=== PATIENT | male | born 1945 | race Caucasian/White ===

== ENCOUNTER 2019-12-20 00:07 | Inpatient (IN) | payer OTHER, SELFPAY ==
[2019-12-20] VITALS (108 sets, daily range): BP systolic 94–178; BP diastolic 62–114; PULSE 52–121; RESP 14–24; TEMP 36.8–37; O2SAT 92–97; BMI 25.2
--- NOTE | 2019-12-20 00:12 | ED_ITS ---
Entered by Natalia Perkins, acting as scribe for Cassandra Avila HPI - General Adult General: Chief complaint: Chest Pain Stated complaint: HEART RATE Time Seen by Provider: 12/20/19 00:12 Source: patient and family Mode of arrival: ambulatory Limitations: no limitations History of Present Illness: HPI narrative: Constantine is a nice 74-year-old male who comes in complaining of rapid palpitations and chest discomfort. The patient states this is what it feels like when he has atrial fibrillation. He had a cardioversion 1 month ago and is scheduled for an outpatient cardiac ablation but it does not occur for another month. The patient states when his heart rate gets up above 140 he really has discomfort. He denies any syncope or near syncope. He says he is feeling a little better here at the hospital upon arrival but still has some discomfort. He denies any exacerbating or alleviating factors. MD complaint: Palpitations, elevated blood pressure Onset (ago): hour(s) (2200 tonight) Location: chest Radiation: neck Severity: mild Pain Consistency: constant Relieving factors: none Exacerbating factors: none Associated symptoms: Reports chest pain and palpitations; Deny confusion, diaphoresis, dyspnea, headache(s), malaise, nausea, rash or vomiting Treatments prior to arrival: none Review of Systems General: Reports: other (negative unless marked) Const: Denies: fever, chills, body aches, fatigue, malaise or diaphoresis Eyes: Denies: change in vision or blurry vision ENMT: Denies: throat pain, painful swallowing, hoarseness, ear pain, ear discharge, Change in hearing or nasal discharge Card: Reports: chest pain and palpitations Resp: Denies: shortness of breath, productive cough, non-productive cough, wheezing, coughing up blood or chest congestion GI: Denies: abdominal pain, nausea, vomiting, vomiting blood, coffee grounds in vomit, diarrhea, constipation, cramping, blood in stool or black tarry stool : Denies: flank pain, difficulty urinating, painful urination, urinary frequency, urinary urgency, decreased urine ouput, urinary incontinence or blood in urine Musc: Denies: neck pain, back pain, extremity pain, extremity swelling, joint pain, joint swelling, joint warmth or joint stiffness Skin/Breast: Denies: rash, skin tenderness or yellow skin Neuro: Denies: headache, numbness in extremities, weakness in extremities, changes in sensation, lack of coordination, difficulty walking, dizziness, vertigo or confusion Endo: Denies: excessive thirst, tired all the time, cold intolerance, excessiv e sweating, flushing or hot flashes Tacos/Lymph: Denies: easy bruising, easy bleeding, petechiae or enlarged lymph nodes All/Imm: Denies: hives, throat swelling, tongue swelling, facial swelling or acute wheezing PFSH ED PFSH: Statuses (acute, chronic, etc) shown below reflect problem list status as previously entered and may not be historically accurate Medical History (Updated 12/20/19 @ 02:53 by Cassandra Avila) Atrial fibrillation (Acute) GERD (gastroesophageal reflux disease) (Acute) Hypertension (Acute) Surgical History (Updated 12/20/19 @ 02:12 by Melissa Garcia MD) H/O vasectomy (Acute) Family History (Updated 12/20/19 @ 02:13 by Melissa Garcia MD) Denies family history of CAD (coronary artery disease) Chronic kidney disease (CKD) Cancer Social History (Updated 12/20/19 @ 02:13 by Melissa Garcia MD) Smoking and tobacco status: never smoked Alcohol intake: never Substance/Drug Use: never Household members: family Housing: House Physical Exam Const: COMMON NORMALS: no apparent distress, oriented x3, no limitations, healthy appearing and well nourished EXAM LIMITATIONS: no altered mental status GENERAL APPEARANCE: cooperative, well kempt and well developed ORIENTATION/CONSCIOUSNESS: Yes awake HENMT: COMMON NORMALS: normocephalic, head/scalp atraumatic, hearing grossly normal bilaterally, external ears normal, EAC's normal, external nose normal and moist oral mucous membranes HEAD & SCALP: normal to inspection, normocephalic and atraumatic FACE & SINUS: normal facial exam and face symmetric NOSE: external nose normal and nares normal EXTERNAL EAR: Yes external ears normal EXTERNAL AUDITORY CANAL: EAC's normal MOUTH: oral and palatal mucosa normal and tongue normal Eye: COMMON NORMALS: PERRL, EOMs intact bilaterally, conjunctivae normal and no scleral icterus GENERAL EYE: normal appearance of both eyes and normal light reflex CONJUNCTIVA: Yes conjunctivae normal SCLERA: sclerae normal CORNEA: Yes corneas normal PUPIL: Yes PERRL DIRECT OPHTHALMOSCOPY: Yes normal light reflex Neck/C-Spine: COMMON NORMALS: full ROM, no lymphadenopathy, supple, no meningeal signs and no JVD GENERAL: Yes normal visual inspection and Yes trachea midline CERVICAL SPINE: Yes cervical ROM normal Chest: COMMONS NORMALS: inspection of chest normal and palpation of chest normal Resp: COMMON NORMALS: normal respiratory effort, no retractions, no use of accessory muscles and clear to auscultation bilaterally EFFORT & INSPECTION: Yes able to speak in complete sentences AUSCULTATION: clear to auscultation bilaterally Cardio: COMMON NORMALS: no JVD, regular rate, regular rhythm, S1 normal heart sound, S2 normal heart sound, no gallops, no clicks, no murmurs and no rub JUGULAR VENOUS DISTENTION: no JVD RATE: regular rate RHYTHM: regular rhythm HEART SOUNDS: S1 normal and S2 normal GI: COMMON NORMALS: soft to palpation, non-tender, no hepatosplenomegaly and no masses INSPECTION: Yes normal to inspection PALPATION: Yes soft and Yes no hepatosplenomegaly : COMMON NORMALS: Yes no CVA tenderness BLADDER/KIDNEY EXAM: Yes no CVA tenderness Back/Pelvis: COMMON NORMALS: no CVA tenderness, thoracic and lumbar spine normal to inspection, no thoracic nor lumbar tenderness and thoraco-lumbar ROM normal Extremity: COMMON NORMALS: normal to inspection, full ROM, normal capillary refill, no joint enlargement, no clubbing, cyanosis or edema and no calf tenderness Neuro: COMMON NORMALS: oriented x3, CN's II-XII intact bilaterally, moves all extremities, no focal motor deficits and no sensory deficits noted MENINGEAL SIGNS: Yes no meningeal signs Psych: COMMON NORMALS: mental status grossly normal, thought process normal, cooperative, affect normal, speech normal and activity/motor behavior normal APPEARANCE: Yes well kempt SPEECH: Yes normal speech THOUGHT PROCESS: normal thought process Skin: COMMON NORMALS: no rashes or lesions noted, skin turgor normal, no jaundice, no petechiae and no mottling GENERAL SKIN EXAM: no rashes or lesions noted and turgor normal Course Vital Signs: Vital signs: Vital Signs Temperature 98.2 F 12/20/19 00:11 Pulse Rate 97 12/20/19 02:00 Respiratory Rate 14 12/20/19 02:35 Blood Pressure 145/92 12/20/19 02:00 Pulse Oximetry 95 12/20/19 02:35 MDM - General Adult MDM Narrative: Medical decision making narrative: Constantine is a 74-year-old male who comes in with chest discomfort and rapid palpitations. His initial EKG showed a sinus rhythm with a PVC. He was doing better and I thought he would get to go home but then he had another episode of paroxysmal A. fib. His rate slowed down with Cardizem bolus and drip but was still slightly tachycardic. He very well may be cardioverted tomorrow but I think this would be best done in a more controlled setting with cardiology present. The patient is requesting Dr. Crowell be available as he has his personal friend and his textile colorist formulator here. Studies have shown that most of these cases resolve within the first 24 hours without need of cardioversion. I reviewed the case in full with Dr. Garcia who is agreeable to admission. Dr. Garcia is going to try and get Dr. Crowell available tomorrow as well. Further care will be dictated by him. Lab Data: Attestation: I reviewed the patient's lab results. Labs: Lab Results 12/20/19 12/20/19 12/20/19 Range/Units 00:30 00:30 00:30 WBC 9.4 (4.0-10.0) 10^3/ uL RBC 5.00 (4.1-5.3) 10^6/u L Hgb 14.9 (11.7-16.6) g/dL Hct 45.0 (42.0-52.0) % MCV 90.0 (80-94) fL MCH 29.8 (28.0-34.0) pg MCHC 33.1 (30.0-36.0) g/dL RDW 13.3 (12.1-15.1) % Plt Count 234 (130-400) 10^3/c mm MPV 11.9 H (7.4-10.4) fL Neut % (Auto) 44.1 % Lymph % (Auto) 36.4 % [place] % (Auto) 12.5 % Eos % (Auto) 5.8 % Baso % (Auto) 0.8 % Neut # (Auto) 4.2 (1.8-7.7) 10^3/u L Lymph # (Auto) 3.4 (0.8-4.8) 10^3/u L [place] # (Auto) 1.2 H (0.2-0.9) 10^3/u L Eos # (Auto) 0.6 (0.0-0.8) 10^3/u L Baso # (Auto) 0.1 (0.0-0.1) 10^3/u L Nucleated RBC % (a uto) 0 % Nucleated RBCs # 0.0 /100WBC Sodium 136 (136-145) mmol/L Potassium 3.7 (3.5-5.1) mmol/L Chloride 99 (98-107) mmol/L Carbon Dioxide 28 (22-29) mmol/L Anion Gap 12.7 (5-19) BUN 24 H (8-23) mg/dL Creatinine 1.2 (0.7-1.2) mg/dL Glucose 148 H (74-106) mg/dL Calcium 9.7 (8.5-10.5) mg/dL Magnesium (1.7-2.3) mg/dL Total Bilirubin 0.2 (0.15-1.2) mg/dL AST 19 (0-40) U/L ALT 14 (0-41) U/L Alkaline Phosphata se 75 (40-130) IU/L Troponin T Baselin e 15 (0-15) ng/mL Total Protein 7.7 (6.6-8.7) g/dL Albumin 4.4 (3.5-5.2) g/dL Globulin 3.3 (1.3-4.6) g/dL Urine Color (Yellow) Urine Appearance (CLEAR) Urine pH (5-7) Ur Specific Gravit y (1.005-1.030) Urine Protein (Negative) Urine Glucose (UA) (Normal) Urine Ketones (Negative) Urine Occult Blood (Negative) Urine Nitrate (Negative) Urine Bilirubin (NEGATIVE) Urine Urobilinogen (Negative) mg/dL Ur Leukocyte Jeana ase (Negative) 12/20/19 12/20/19 Range/Units 00:30 01:43 WBC (4.0-10.0) 10^3/ uL RBC (4.1-5.3) 10^6/u L Hgb (11.7-16.6) g/dL Hct (42.0-52.0) % MCV (80-94) fL MCH (28.0-34.0) pg MCHC (30.0-36.0) g/dL RDW (12.1-15.1) % Plt Count (130-400) 10^3/c mm MPV (7.4-10.4) fL Neut % (Auto) % Lymph % (Auto) % [place] % (Auto) % Eos % (Auto) % Baso % (Auto) % Neut # (Auto) (1.8-7.7) 10^3/u L Lymph # (Auto) (0.8-4.8) 10^3/u L [place] # (Auto) (0.2-0.9) 10^3/u L Eos # (Auto) (0.0-0.8) 10^3/u L Baso # (Auto) (0.0-0.1) 10^3/u L Nucleated RBC % (a uto) % Nucleated RBCs # /100WBC Sodium (136-145) mmol/L Potassium (3.5-5.1) mmol/L Chloride (98-107) mmol/L Carbon Dioxide (22-29) mmol/L Anion Gap (5-19) BUN (8-23) mg/dL Creatinine (0.7-1.2) mg/dL Glucose (74-106) mg/dL Calcium (8.5-10.5) mg/dL Magnesium 2.4 H (1.7-2.3) mg/dL Total Bilirubin (0.15-1.2) mg/dL AST (0-40) U/L ALT (0-41) U/L Alkaline Phosphata se (40-130) IU/L Troponin T Baselin e (0-15) ng/mL Total Protein (6.6-8.7) g/dL Albumin (3.5-5.2) g/dL Globulin (1.3-4.6) g/dL Urine Color Yellow (Yellow) Urine Appearance Clear (CLEAR) Urine pH 5 (5-7) Ur Specific Gravit y 1.025 (1.005-1.030) Urine Protein Neg (Negative) Urine Glucose (UA) Norm (Normal) Urine Ketones Negative (Negative) Urine Occult Blood Neg (Negative) Urine Nitrate Negative (Negative) Urine Bilirubin Neg (NEGATIVE) Urine Urobilinogen Norm (Negative) mg/dL Ur Leukocyte Jeana ase Negative (Negative) Imaging Data^: CXR: My impression: No acute cardiopulmonary disease. Small left pleural effusion. Pleural effusion is new since last chest x-ray. EKG Data^: EKG 1: Attestation: I personally reviewed and interpreted this EKG as follows: EKG interpretation date: 12/20/19 EKG interpretation time: 00:18 Interpretation: Normal sinus rhythm at 73 beats a minute, PACs, PVC, nonspecific ST-T wave changes. EKG 2: Attestation: I personally reviewed and interpreted this EKG as follows: EKG interpretation date: 12/20/19 EKG interpretation time: 01:40 Interpretation: Atrial fibrillation with a ventricular rate of 114 beats a minute, normal QRS, normal QTC, normal axis, nonspecific ST and T wave changes. Discharge Plan Discharge Patient Disposition: Admitted As Inpatient Admit Provider: Melissa Garcia Clinical Impression: Atrial fibrillation with RVR Condition: Stable Coding Level of Care Code ED Advertising Statistical Clerk for Chg Fwd Exam Problem Focused The documentation recorded by the Gregorio arauz Bridget Annette, accurately reflects the service I personally performed and the decisions made by Margarita pimentel Eli N Dec 20, 2019 00:07
--- NOTE | 2019-12-20 00:18 | XR_ITS ---
WS: [id number] CHEST XRAY TECHNIQUE: Portable chest. CLINICAL INFORMATION: CP/PALPS COMPARISON: December 24, 2016 FINDINGS: Heart: Cardiomegaly. Lungs: Chronic emphysematous changes. Small left pleural effusion. Slight infiltrate or atelectasis l eft lung base. Right lung is well aerated. Bones: Hypertrophic changes thoracic spine. XR/XR chest 1V portable [id number] IMPRESSION: 1. Small left pleural effusion with slight left basilar infiltrate or atelecta sis. 2. Right lung is well aerated.
--- NOTE | 2019-12-20 00:18 | ECG_ITS ---
Measurements Intervals [place] Rate: 73 P: 74 IA: 140 QRS: 30 QRSD: 87 T: 53 QT: 397 QTc: 440 SINUS RHYTHM WITH OCCASIONAL VENTRICULAR PREMATURE COMPLEXES WITH FREQUENT SUP SUPRAVENTRICULAR PREMATURE COMPLEXES ABNORMAL RHYTHM ECG Compared to ECG 06/23/2019 12:15:21 Ventricular premature complex(es) now present Sinus arrhythmia no longer present Electronically Signed On 12-20-2019 11:33:06 VENTILATION EQUIPMENT TENDER by Dimitris Badillo M.D. [id number] f
--- NOTE | 2019-12-20 00:19 | PC.NURSE ---
EKG done at 0017 and shown to ER doctor.
[2019-12-20] MEDS: sodium chloride 0.9% 1,000 ML 999 ML IV (00:21)
[2019-12-20] MEDS: aspirin 81 mg Chew Tablet 324 MG PO (00:33)
[2019-12-20 00:38] LABS: Basophils # 0.1 10^3/uL (0.0-0.1); Basophils % 0.8 %; Eosinophils # 0.6 10^3/uL (0.0-0.8); Eosinophils % 5.8 %; Hemoglobin 14.9 g/dL (11.7-16.6); Lymphocytes # 3.4 10^3/uL (0.8-4.8); Lymphocytes % 36.4 %; Mean Corpuscular HGB Conc 33.1 g/dL (30.0-36.0); Mean Corpuscular Hemoglobin 29.8 pg (28.0-34.0); Mean Platelet Volume 11.9 fL (7.4-10.4); Monocytes # 1.2 10^3/uL (0.2-0.9); Monocytes % 12.5 %; Neutrophils # 4.2 10^3/uL (1.8-7.7); Neutrophils % 44.1 %; Nucleated Red Blood Cells % 0 %; Platelet Count 234 10^3/cmm (130-400); Red Cell Distribution Width 13.3 % (12.1-15.1); White Blood Count 9.4 10^3/uL (4.0-10.0)
[2019-12-20 00:53] LABS: Alanine Aminotransferase 14 U/L (0-41); Albumin Level 4.4 g/dL (3.5-5.2); Alkaline Phosphatase 75 IU/L (40-130); Anion Gap 12.7 (5-19); Aspartate Amino Transferase 19 U/L (0-40); Blood Urea Nitrogen 24 mg/dL (8-23); Calcium 9.7 mg/dL (8.5-10.5); Carbon Dioxide 28 mmol/L (22-29); Chloride 99 mmol/L (98-107); Globulin 3.3 g/dL (1.3-4.6); Glucose 148 mg/dL (74-106); Potassium 3.7 mmol/L (3.5-5.1); Sodium 136 mmol/L (136-145); Total Bilirubin 0.2 mg/dL (0.15-1.2); Total Protein 7.7 g/dL (6.6-8.7)
[2019-12-20 00:55] LABS: Troponin(5th) Baseline 15 ng/mL (0-15)
--- NOTE | 2019-12-20 01:44 | PC.NURSE ---
Performed repeat EKG due to patient stating that he was hurting and felt short of breath, informed nurse and ER doctor. EKG was done at 0142 and shown to ER doctor.
[2019-12-20 01:48] LABS: Add Urine Microscopic? NO
[2019-12-20 01:59] LABS: Magnesium 2.4 mg/dL (1.7-2.3)
[2019-12-20 02:03] LABS: Bilirubin Urine Neg (NEGATIVE); Blood Urine Neg (Negative); Glucose Urine UA Norm (Normal); Ketones Urine Negative (Negative); Leukocyte Esterase Urine Negative (Negative); Nitrate Urine Negative (Negative); Protein Urine Neg (Negative); Specific Gravity, Urine 1.025 (1.005-1.030); Urine Appearance Clear (CLEAR); Urine Color Yellow (Yellow); Urobilinogen Urine Norm (Negative); pH Urine 5 (5-7)
--- NOTE | 2019-12-20 02:11 | PM.HP ---
Providers/Chief Complaint Chief Complaint: AFIB W/RVR History of Present Illness Constantine Walker is a 74 year old male who carries diagnosis of paroxysmal atrial fibrillation came in after experiencing palpitations. 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 He got diagnosed with atrial fibrillation about 5 years ago, was put on amiodarone, developed a rash to amiodarone which was discontinued later, did not experience any recurrence of A. fib in the last 5 years until 1 month ago he started having symptomatic palpitations when he was cardioverted in [place]. Patient is here in the hospital because he started experiencing palpitation as soon as he laid down in his bed to sleep it made him very uncomfortable he started feeling some pressure-like sensation in his throat and decided to come to ER. Patient is stating that he is very active and does not want to do withdrawal complications, he is denying active chest pain, shortness of breath, nausea vomiting dysuria numbness tingling extremity weakness. He denies previous history of [place], coronary disease or stroke. Diagnostics in ER showed normal hemodynamics, A. fib RVR heart rate fluctuating between 12 10- 30, he was started on Cardizem drip and was admitted to ICU overflow, I have started him on Eliquis, he received full dose therapeutic dose of Lovenox in ER Review of Systems Const: Denies: fever or chills Eyes: Denies: change in vision ENMT: Denies: throat pain Card: Reports: palpitations and irregular heart rhythm; Denies: chest pain, edema, swelling of feet/ankles or lightheadedness Resp: Denies: shortness of breath GI: Denies: abdominal pain or nausea : Denies: flank pain Musc: Denies: neck pain Skin/Breast: Denies: rash Neuro: Denies: headache Psych: Denies: anxiety Endo: Denies: excessive urination Tacos/Lymph: Denies: easy bruising All/Imm: Denies: hives Medications/Allergies Home Medications Medication Instructions Recorded Confirmed Last Taken Type losartan 100 mg PO DAILY 12/20/19 12/20/19 1 Day Ago History ~12/19/19 100 spironolactone [Aldactone] 25 mg 12/20/19 1 Day Ago History ~12/19/19 25 Allergies Allergy/AdvReac Type Severity Reaction Status Date / Time adhesive Allergy ALGY-Rash Verified 12/20/19 00:20 latex Allergy ALGY-Rash Verified 12/20/19 00:20 Penicillins Allergy Unknown Verified 12/20/19 00:20 Sulfa (Sulfonamide Allergy ADR/ALGY-Fl Verified 12/20/19 00:20 Antibiotics) ushing PFSH Acute PFSH: Statuses (acute, chronic, etc) shown below reflect problem list status as previously entered and may not be historically accurate Medical History (Updated 12/20/19 @ 02:53 by Cassandra Avila) Atrial fibrillation (Acute) GERD (gastroesophageal reflux disease) (Acute) Hypertension (Acute) Surgical History (Updated 12/20/19 @ 03:07 by Melissa Garcia MD) H/O carotid endarterectomy (Acute) H/O vasectomy (Acute) Family History (Updated 12/20/19 @ 02:13 by Melissa Garcia MD) Denies family history of CAD (coronary artery disease) Chronic kidney disease (CKD) Cancer Social History (Updated 12/20/19 @ 02:13 by Melissa Garcia MD) Smoking and tobacco status: never smoked Alcohol intake: never Substance/Drug Use: never Household members: family Housing: House Vitals/I&O/Wt Last Vital Signs Temp 98.2 F 12/20/19 00:11 Pulse 97 12/20/19 02:00 Resp 17 12/20/19 02:00 BP 145/92 12/20/19 02:00 Pulse Ox 94 12/20/19 02:00 Weight last 48 hrs Weight 79.832 kg Physical Exam Narrative: EXAM NARRATIVE: Very pleasant healthy looking elderly Nourished, well hydrated No active symptoms Variable S1-S2 no active signs of JVD heart failure or lower extremity edema Abdomen soft nontender nondistended Lungs are clear to auscultation No extremity weakness numbness or tingling EOMI, PERRLA Facial hyperemic rash which is chronic as per the patient Appropriate mood and affect Thyroid not enlarged Data : 12/20/19 00:30 12/20/19 00:30 A&P Assessment and plan (1) Atrial fibrillation with RVR: Status: Acute Code(s): I48.91 - Unspecified atrial fibrillation Additional A&P Information Paroxysmal atrial fibrillation with RVR Potassium mildly low 3.5, magnesium normal, We will check TSH level, For rate control I would continue Cardizem drip, his Jonny Vasc is 3, I will start him on Eliquis 5 mg twice a day Patient is scheduled to get ablation at [place] in the near future Patient is requesting if cardiology is consulted he would prefer Dr. Crowell Hypertension: I would continue losartan and spironolactone for now No hypokalemia noted GERD: He takes omeprazole I will continue Protonix for now Full code DVT prophylaxis not needed because of Eliquis started today No need of IV fluids Attestations Medical Necessity Statement*: Patient is being admitted to ICU because he needs Cardizem drip for rate control, clinical course depends on his response to rate controlling medications, currently I am anticipating stay might be longer than 2 midnights Time Spent in Patient Care: 60 Coding Level of Care Code Acute Tunnel Drier Operator for Whit Ruff Diagnoses Atrial fibrillation with RVR I48.91
--- NOTE | 2019-12-20 02:16 | PC.NURSE ---
Performed EKG at 0212 and shown to ER doctor
--- NOTE | 2019-12-20 02:18 | ECG_ITS ---
Measurements Intervals [place] Rate: 114 P: FL: 0 QRS: 14 QRSD: 93 T: -1 QT: 300 QTc: 414 ATRIAL FIBRILLATION WITH RAPID VENTRICULAR RESPONSE NONSPECIFIC T-WAVE ABNORMALITY ABNORMAL RHYTHM ECG Compared to ECG 06/23/2019 12:15:21 T-wave abnormality now present Sinus rhythm no longer present Sinus arrhythmia no longer present Electronically Signed On 12-20-2019 11:37:23 DIRECTOR ELECTRONICS by Dimitris Badillo M.D. [id number]
[2019-12-20] MEDS: enoxaparin 80 mg/0.8 mL Syringe SUBCUT (02:20)
[2019-12-20 02:51] LABS: Troponin 5 2HR 13.06 ng/mL (0-15)
[2019-12-20 02:54] LABS: Troponin 5 2HR Delta -1.94 ABS# (0-10)
[2019-12-20 03:49] LABS: Thyroid Stimulating Hormone 7.17 uIU/mL (0.27-4.20)
[2019-12-20] MEDS: sodium chloride 0.9% 1,000 ML 100 ML IV (04:37)
[2019-12-20 06:06] LABS: Basophils # 0.1 10^3/uL (0.0-0.1); Basophils % 0.9 %; Eosinophils # 0.4 10^3/uL (0.0-0.8); Eosinophils % 5.7 %; Hematocrit 44.7 % (42.0-52.0); Hemoglobin 14.7 g/dL (11.7-16.6); Lymphocytes # 2.8 10^3/uL (0.8-4.8); Lymphocytes % 36.7 %; Mean Corpuscular HGB Conc 32.9 g/dL (30.0-36.0); Mean Corpuscular Hemoglobin 28.3 pg (28.0-34.0); Mean Corpuscular Volume 86.1 fL (80-94); Mean Platelet Volume 12.6 fL (7.4-10.4); Monocytes # 0.8 10^3/uL (0.2-0.9); Monocytes % 10.7 %; Neutrophils # 3.5 10^3/uL (1.8-7.7); Neutrophils % 45.6 %; Nucleated Red Blood Cells % 0 %; Platelet Count 234 10^3/cmm (130-400); Red Blood Count 5.19 10^6/uL (4.1-5.3); Red Cell Distribution Width 13.2 % (12.1-15.1); White Blood Count 7.7 10^3/uL (4.0-10.0)
--- NOTE | 2019-12-20 06:18 | ECG_ITS ---
Measurements Intervals [place] Rate: 98 P: NM: 0 QRS: 26 QRSD: 100 T: 29 QT: 366 QTc: 469 ATRIAL FIBRILLATION NONSPECIFIC T-WAVE ABNORMALITY ABNORMAL RHYTHM ECG Compared to ECG 06/23/2019 12:15:21 T-wave abnormality now present Sinus rhythm no longer present Sinus arrhythmia no longer present Electronically Signed On 12-20-2019 11:37:26 DENIAL MANAGEMENT REPRESENTATIVE by Dimitris Badillo M.D. [id number]
[2019-12-20 06:32] LABS: Anion Gap 17.8 (5-19); Blood Urea Nitrogen 17 mg/dL (8-23); Calcium 8.8 mg/dL (8.5-10.5); Carbon Dioxide 22 mmol/L (22-29); Chloride 105 mmol/L (98-107); Glucose 117 mg/dL (74-106); Osmolality Calculated 289 mOsm/kg (285-295); Potassium 3.8 mmol/L (3.5-5.1); Sodium 141 mmol/L (136-145)
[2019-12-20] MEDS: acetaminophen 325 mg Tablet PO (08:56)
[2019-12-20] MEDS: apixaban 5 mg Tablet PO (10:07)
[2019-12-20] MEDS: dilTIAZem 30 mg Tablet PO (12:14)
--- NOTE | 2019-12-20 13:05 | PC.CHAP ---
Pastoral Care Encounter/Spiritual Assessment Type of Contact [] Declined diversional therapist visit [] Patient/Family/Request visit [] Outpatient visit [] Follow-up visit [] Physician referral [] Code/Alert [x] Routine visit [] Staff referral [] Actively dying [] Patient sleeping [] Family support [] [] Out of room [] Palliative care [] [] Receiving care in room [] Pre-surgical visit [] Trauma [] Long length of stay [] ICU visit [] Other: Relational/Emotional Strength [x] Patient feels connected with others/family/visitors/staff [] Distress [] Loneliness/isolation [] Abandonment Spirituality of Patient [x] Person of Mary [x] Attends Mandaen of their Mary [x] Believes in Prayer [x] Reads Bible or Sikh materials [] There are Spiritual issues to be addressed Chute Builder Interventions [x] Prayer [x] Active listening [x] Non-anxious presence [x] Spiritual/emotional support [] Crisis/trauma care [] Spiritual counseling [] Bereavement support [] Provided bereavement packet [] Provided Bible/devotional materials [] Provided toy/stuffed animal, coloring book to patient or family member [] Provided Communion [] Anointing/[place] [] Salvation [x] Completed spiritual assessment [] Other: Impact on Illness or Injury [] Angry [] Fearful [] Anxious [] Often cries [] Exhaustion [] Unable to work [] Unable to attend congregation [] Unable to walk/stand [] Unable to read [] Unable to drive [] Unable to eat/drink [] Unable to sleep [] Unable to be with family [] Patient intubated [] Other: Summary Patient was doing better and 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 Time spent with patient 15 minutes
--- NOTE | 2019-12-20 14:57 | P.DS_ITS ---
Discharge Providers Date of Admission: 12/20/19 02:04 Date of Discharge: 12/20/19 Attending Provider at Admission: Melissa Garcia MD Attending Provider at Discharge: Seth Coe MD Diagnoses at Discharge Discharge Diagnosis (1) Atrial fibrillation with RVR: Status: Acute Reason for Visit Reason for Visit: Reason For Visit: AFIB W/RVR Hospital Course Discharge Summary: Constantine Walker is a 74-year-old pleasant gentleman with past medical history of hypertension, atrial fibrillation for which he has had cardioversion twice not on any anticoagulation who presented to the ER on December 20 complaining of palpitations, dizziness along with nausea but no loss of consciousness and mild shortness of breath. In the ER he was found to be in atrial fibrillation with rapid ventricular rate for which he was started on a Cardizem drip. Patient at home if not on any rate limiting drugs so in the morning he was started on oral Cardizem and IV Cardizem drip was weaned off. Patient has walk around in the ICU and continues to remain in sinus rhythm without any tachycardia, dizziness or shortness of breath. Anticoagulation were discussed with the family and patient and so he was started on Eliquis 5 mg twice daily. Patient is being discharged in normal hemodynamics on oral Cardizem and Eliquis and has been asked to follow-up with his senior health educator with whom he already has an appointment for next week at [facility] in [place]. Patient has been advised and counseled to refrain from any strenuous exercise and physical activities until he sees his senior health educator. Patient is also been advised to check his blood pressure daily. As Cardizem has been added to his medication list his home dose of lisinopril has been reduced to half Physical Exam Narrative: EXAM NARRATIVE: Very pleasant healthy looking elderly Nourished, well hydrated Cardiovascular: Variable S1-S2 soft pansystolic murmur in the apex, normal JVD, no rubs, no gallops Abdomen: Soft nontender nondistended, bowel sounds present Lungs: Are clear to auscultation No extremity weakness numbness or tingling EOMI, PERRLA Facial hyperemic rash which is chronic as per the patient Appropriate mood and affect Discharge Data Data Completed and Pending: Completed Studies During Hospitalization Category Date Time Status XR chest 1V sylvain ble [id number] Stat Exams 12/20/19 00:18 Completed Labs from last 24 hours 12/20/19 12/20/19 12/20/19 06:15 04:30 04:30 WBC 7.7 RBC 5.19 Hgb 14.7 Hct 44.7 MCV 86.1 MCH 28.3 MCHC 32.9 RDW 13.2 Plt Count 234 MPV 12.6 H Neut % (Auto) 45.6 Lymph % (Auto) 36.7 [place] % (Auto) 10.7 Eos % (Auto) 5.7 Baso % (Auto) 0.9 Neut # (Auto) 3.5 Lymph # (Auto) 2.8 [place] # (Auto) 0.8 Eos # (Auto) 0.4 Baso # (Auto) 0.1 Nucleated RBC % (a uto) 0 Nucleated RBCs # 0.0 Sodium 141 Potassium 3.8 Chloride 105 Carbon Dioxide 22 Anion Gap 17.8 BUN 17 Creatinine 1.0 Glucose 117 H Calculated Osmolal ity 289 Calcium 8.8 Magnesium Total Bilirubin AST ALT Alkaline Phosphata se Troponin I 6 Hour 13.10 Troponin I Hi Sens Del -1.90 L Troponin T Baselin e Troponin T 120 Min [place] Troponin T Total Protein Albumin Globulin TSH Urine Color Urine Appearance Urine pH Ur Specific Gravit y Urine Protein Urine Glucose (UA) Urine Ketones Urine Occult Blood Urine Nitrate Urine Bilirubin Urine Urobilinogen Ur Leukocyte Jeana ase 12/20/19 12/20/19 12/20/19 02:28 02:18 01:43 WBC RBC Hgb Hct MCV MCH MCHC RDW Plt Count MPV Neut % (Auto) Lymph % (Auto) [place] % (Auto) Eos % (Auto) Baso % (Auto) Neut # (Auto) Lymph # (Auto) [place] # (Auto) Eos # (Auto) Baso # (Auto) Nucleated RBC % (a uto) Nucleated RBCs # Sodium Potassium Chloride Carbon Dioxide Anion Gap BUN Creatinine Glucose Calculated Osmolal ity Calcium Magnesium Total Bilirubin AST ALT Alkaline Phosphata se Troponin I 6 Hour Troponin I Hi Sens Del Troponin T Baselin e Troponin T 120 Min [place] 13.06 Delta Troponin T -1.94 L Total Protein Albumin Globulin TSH 7.17 H Urine Color Yellow Urine Appearance Clear Urine pH 5 Ur Specific Gravit y 1.025 Urine Protein Neg Urine Glucose (UA) Norm Urine Ketones Negative Urine Occult Blood Neg Urine Nitrate Negative Urine Bilirubin Neg Urine Urobilinogen Norm Ur Leukocyte Jeana ase Negative 12/20/19 12/20/19 12/20/19 00:30 00:30 00:30 WBC RBC Hgb Hct MCV MCH MCHC RDW Plt Count MPV Neut % (Auto) Lymph % (Auto) [place] % (Auto) Eos % (Auto) Baso % (Auto) Neut # (Auto) Lymph # (Auto) [place] # (Auto) Eos # (Auto) Baso # (Auto) Nucleated RBC % (a uto) Nucleated RBCs # Sodium 136 Potassium 3.7 Chloride 99 Carbon Dioxide 28 Anion Gap 12.7 BUN 24 H Creatinine 1.2 Glucose 148 H Calculated Osmolal ity Calcium 9.7 Magnesium 2.4 H Total Bilirubin 0.2 AST 19 ALT 14 Alkaline Phosphata se 75 Troponin I 6 Hour Troponin I Hi Sens Del Troponin T Baselin e 15 Troponin T 120 Min [place] Troponin T Total Protein 7.7 Albumin 4.4 Globulin 3.3 TSH Urine Color Urine Appearance Urine pH Ur Specific Gravit y Urine Protein Urine Glucose (UA) Urine Ketones Urine Occult Blood Urine Nitrate Urine Bilirubin Urine Urobilinogen Ur Leukocyte Jeana ase 12/20/19 00:30 WBC 9.4 RBC 5.00 Hgb 14.9 Hct 45.0 MCV 90.0 MCH 29.8 MCHC 33.1 RDW 13.3 Plt Count 234 MPV 11.9 H Neut % (Auto) 44.1 Lymph % (Auto) 36.4 [place] % (Auto) 12.5 Eos % (Auto) 5.8 Baso % (Auto) 0.8 Neut # (Auto) 4.2 Lymph # (Auto) 3.4 [place] # (Auto) 1.2 H Eos # (Auto) 0.6 Baso # (Auto) 0.1 Nucleated RBC % (a uto) 0 Nucleated RBCs # 0.0 Sodium Potassium Chloride Carbon Dioxide Anion Gap BUN Creatinine Glucose Calculated Osmolal ity Calcium Magnesium Total Bilirubin AST ALT Alkaline Phosphata se Troponin I 6 Hour Troponin I Hi Sens Del Troponin T Baselin e Troponin T 120 Min [place] Troponin T Total Protein Albumin Globulin TSH Urine Color Urine Appearance Urine pH Ur Specific Gravit y Urine Protein Urine Glucose (UA) Urine Ketones Urine Occult Blood Urine Nitrate Urine Bilirubin Urine Urobilinogen Ur Leukocyte Jeana ase Vitals: Last Vital Signs Temp 98.6 F 12/20/19 14:15 Pulse 58 L 01/30/20 14:25 Resp 23 H 12/20/19 14:25 BP 102/63 12/20/19 14:25 Pulse Ox 96 12/20/19 14:25 Discharge Plan Discharge Patient Disposition: Home, Self-Care Condition: Stable Prescriptions: New Eliquis 5 mg Tablet 5 mg PO BID Qty: 60 RF: 0 diltiazem HCl 30 mg Tablet 30 mg PO TID Qty: 90 RF: 0 Continued Aldactone 25 mg Tablet 25 mg RF: 0 Changed losartan 100 mg Tablet 50 mg PO DAILY Qty: 0 RF: 0 Discharge Orders: Discharge Order (Routine); Ordered 12/20/19 Ordered By: Seth Coe Referrals: [facility] [Family Provider] - 1 week Discharge Diet: Cardiac Discharge Activity: Resume usual activity Activity Restrictions/Additional Instructions: Patient is to follow-up with his certified hearing instrument dispenser for ablation next week at [facility]. Patient is advised to check his blood pressure daily. Patient is advised to restrain from heavy strenuous activities until he sees his senior health educator. Discharge Attestations Time Spent in Discharge Care*: greater than 30 min Specific Discharge Activities: Specific discharge activities: educating patient, educating and/or supporting family/caregiver and evaluating patient/reviewing data Status at Discharge: Cognitive status at discharge: cognitively intact , Behavioral status at discharge: cooperative , Functional status at discharge: independent ambulation Overall status at discharge: patient is back to baseline Quality Metrics Clinical Quality Measures During this hospital stay, did patient experience: None Coding Level of Care Code Acute Railway Signal Technician for Whit Ruff Diagnoses Atrial fibrillation with RVR I48.91
== END 2019-12-20 16:42 | disposition home or self-care (01) | DRG 310 ==
LOC: ER 02:29 → ICU 02:35
PROVIDERS: Admitting Provider Internal Medicine; Emergency Provider Emergency Medicine; Visit Provider Student in an Organized Health Care Education/Training Program
DX: I48.0 Paroxysmal atrial fibrillation (principal); Z79.01 Long term (current) use of anticoagulants; K21.9 Gastro-esophageal reflux disease without esophagitis; I10 Essential (primary) hypertension
CPT/HCPCS: 12345; 36415; 71045; 80048; 80053; 81003; 83735; 84443; 84484; 85025; 93005; 96372; 96374; 99283; A9270; J1650; J3490; J7030

== ENCOUNTER 2022-08-21 14:23 | Emergency (ER) | payer OTHER, SELFPAY ==
[2022-08-21] VITALS (7 sets, daily range): BP systolic 131–163; BP diastolic 78–83; PULSE 59–64; RESP 15–17; TEMP 36.1–36.5; O2SAT 93–97
--- NOTE | 2022-08-21 14:49 | ED_ITS ---
Documented by User: VILMA Ku 08/21/22 22:33 HPI - Extremity Problem General: Chief complaint: Extremity Injury, Upper Stated complaint: Fell from Ladder Time Seen by Provider: 08/21/22 14:49 History of Present Illness: 77-year-old male in today stating that he was on a ladder and fell approximately 3 to 4 feet onto concrete. He reports that the ladder folded up on him and caused him to fall. He reports that he fell onto his right elbow which has injured his shoulder. He is certain that he has broken his arm. He denies hitting his head or having loss of consciousness. He denies pain anywhere else on his body. Patient drove himself to the hospital and came into the ER ambulatory. Associated symptoms: Deny chest pain or fever(s) Review of Systems Const: Denies: fever(s) or chills Eyes: Denies: change in vision or blurry vision Card: Denies: chest pain or palpitations Resp: Denies: dyspnea GI: Denies: abdominal pain, nausea or vomiting : Denies: flank pain, difficulty urinating, dysuria or urinary frequency Musc: Reports: extremity pain (Right arm and shoulder pain) and extremity swelling Skin/Breast: Reports: other (Laceration right palm) [facility] ED PFSH: Medical History Atrial fibrillation GERD (gastroesophageal reflux disease) Hypertension Surgical History H/O carotid endarterectomy H/O vasectomy Family History Denies family history of CAD (coronary artery disease) Chronic kidney disease (CKD) Cancer Social History Smoking and tobacco status: never smoked Alcohol intake: never Household members: family Housing: House Physical Exam Const: COMMON NORMALS: no acute distress (Patient is in obvious pain), patient oriented x3 and alert Eye: COMMON NORMALS: Equal, round and reactive pupils present, EOMs intact bilaterally, conjunctivae normal and normal visual hoskins by confrontation CONJUNCTIVA: Yes conjunctivae normal PUPIL: Yes Equal, round and reactive pupils present Neck/C-Spine: COMMON NORMALS: full ROM, supple and no JVD Resp: COMMON NORMALS: normal respiratory effort, No use of accessory muscles and clear to auscultation bilaterally AUSCULTATION: clear to auscultation bilaterally Cardio: COMMON NORMALS: no JVD, regular rate and regular rhythm RATE: regular rate RHYTHM: regular rhythm Extremity: NARRATIVE EXTREMITY EXAM: Patient will not move the right arm. He has severe tenderness to palpation right deltoid region of the arm. Some swelling. No obvious bruising or soft tissue deformity patient is able to wiggle his fingers. CSM within normal limits. He does have a laceration on the palmar surface of his right hand. Bleeding appears controlled at this time. Wound is cleaned and dressed. Neuro: COMMON NORMALS: patient oriented x3 SENSORIUM/ORIENTATION: Yes alert Course Consultations: Consultation #1: [id number]?consulted Dr. Miguel regarding humerus fracture. He reviewed the images and requested that I do a CT of the shoulder. Reports that as long as the shoulder is in orbit put him in a sling and have the patient follow-up with Dr. Miguel in office next week. Vital Signs: Vital signs: Vital Signs Temperature 97.7 F 08/21/22 19:11 Pulse Rate 63 08/21/22 19:11 Respiratory Rate 17 08/21/22 19:11 Blood Pressure 163/83 08/21/22 19:11 Pulse Oximetry 96 08/21/22 19:11 Oxygen Delivery Me thod 08/21/22 16:21 MDM - Extremity (Nontraumatic) Medical Decision Making 77-year-old male patient in today after a fall off of a ladder 3 to 4 feet. Patient reports that he broke his right arm. Patient has laceration on his hand. He states that he landed on his elbow which broke his upper arm. X-rays done show a comminuted displaced angulated fracture of the right humeral neck. Hand and elbow x-rays are unremarkable. I did discuss this fracture with Dr. Miguel who recommends a CT of the shoulder. Shoulder CT again shows the comminuted fracture. CT reports no glenohumeral dislocation or AC separation. Patient is put in a sling and swath and discharged to home for follow-up with Dr. Miguel next week. Consulted with Dr. Solis for pain control for patient after discharge. Percocet 5 mg 325 mg 1 every 4-6 hours as needed as needed pain is prescribed in a written prescription. Discussed conservative treatments at home. Follow-up with Ortho as discussed. Return to ER for any new or worsening symptoms patient and family verbalized understanding of the instruction. All questions answered to satisfaction Lab Data Radiology Impressions Forearm X-Ray 08/21/22 14:51 IMPRESSION: No acute findings. Humerus X-Ray 08/21/22 14:51 IMPRESSION: Comminuted displaced angulated fracture of the right humeral neck. Hand X-Ray 08/21/22 14:52 IMPRESSION: No acute findings. Elbow X-Ray 08/21/22 15:34 IMPRESSION: No acute findings. Shoulder CT 08/21/22 16:31 IMPRESSION: 1. Comminuted displaced fracture involving the right humeral neck and proximal humeral shaft. 2. Contiguous fracture involving the lateral humeral head and portions of the greater tuberosity. 3. No glenohumeral dislocation or AC separation. 4. Mild right acromioclavicular arthropathy. Discharge Plan Discharge Patient Disposition: Home Clinical Impression: Comminuted fracture of right humerus, Laceration Condition: Stable Prescriptions: No Action Aldactone 25 mg Tablet 25 mg diltiazem HCl 30 mg Tablet 30 mg PO TID Qty: 90 0RF Eliquis 5 mg Tablet 5 mg PO BID Qty: 60 0RF losartan 100 mg Tablet 50 mg PO DAILY Qty: 0 0RF Discharge Orders: Discharge ED (Routine); Ordered 08/21/22 Ordered By: Krissy Chambers Referrals: [facility] [Primary Care Provider] - Discharge Diet: Usual diet Discharge Activity: Limit activity as instructed Patient Instructions: Arm Fracture in Adults (ED), Opioid Safety, Pain Management Activity Restrictions/Additional Instructions: Use pain medication as directed. Keep arm in sling. Ice and rest the extremity. Follow-up with Dr. Miguel first thing next week. Return to the ER for new or worsening symptoms. Keep laceration on hand clean and dry. Monitor closely for signs and symptoms of infection. Coding Level of Care Code ED Conveyor Tender for Chg Fwd Exam Detailed Documented by User: Issa Quinones DO 08/22/22 07:33 HPI - Extremity Problem General: Chief complaint: Extremity Injury, Upper Stated complaint: Fell from Ladder Time Seen by Provider: 08/21/22 14:49 PFSH ED PFSH: Medical History Atrial fibrillation GERD (gastroesophageal reflux disease) Hypertension Surgical History H/O carotid endarterectomy H/O vasectomy Family History Denies family history of CAD (coronary artery disease) Chronic kidney disease (CKD) Cancer Social History Smoking and tobacco status: never smoked Alcohol intake: never Household members: family Housing: House Course Vital Signs: Vital signs: Vital Signs Temperature 97.7 F 08/21/22 19:11 Pulse Rate 63 08/21/22 19:11 Respiratory Rate 17 08/21/22 19:11 Blood Pressure 163/83 08/21/22 19:11 Pulse Oximetry 96 08/21/22 19:11 Oxygen Delivery Me thod 08/21/22 16:21 MDM - Extremity (Nontraumatic) Medical Decision Making 77-year-old male patient in today after a fall off of a ladder 3 to 4 feet. Patient reports that he broke his right arm. Patient has laceration on his hand. He states that he landed on his elbow which broke his upper arm. X-rays done show a comminuted displaced angulated fracture of the right humeral neck. Hand and elbow x-rays are unremarkable. I did discuss this fracture with Dr. Miguel who recommends a CT of the shoulder. Shoulder CT again shows the comminuted fracture. CT reports no glenohumeral dislocation or AC separation. Patient is put in a sling and swath and discharged to home for follow-up with Dr. Miguel next week. Consulted with Dr. Solis for pain control for patient after discharge. Percocet 5 mg 325 mg 1 every 4-6 hours as needed as needed pain is prescribed in a written prescription. Discussed conservative treatments at home. Follow-up with Ortho as discussed. Return to ER for any new or worsening symptoms patient and family verbalized understanding of the instruction. All questions answered to satisfaction Chart reviewed and patient discussed with midlevel. Agree with assessment and plan. Lab Data Radiology Impressions Forearm X-Ray 08/21/22 14:51 IMPRESSION: No acute findings. Humerus X-Ray 08/21/22 14:51 IMPRESSION: Comminuted displaced angulated fracture of the right humeral neck. Hand X-Ray 08/21/22 14:52 IMPRESSION: No acute findings. Elbow X-Ray 08/21/22 15:34 IMPRESSION: No acute findings. Shoulder CT 08/21/22 16:31 IMPRESSION: 1. Comminuted displaced fracture involving the right humeral neck and proximal humeral shaft. 2. Contiguous fracture involving the lateral humeral head and portions of the greater tuberosity. 3. No glenohumeral dislocation or AC separation. 4. Mild right acromioclavicular arthropathy. Discharge Plan Discharge Patient Disposition: Home Clinical Impression: Comminuted fracture of right humerus, Laceration Condition: Stable Prescriptions: No Action Aldactone 25 mg Tablet 25 mg diltiazem HCl 30 mg Tablet 30 mg PO TID Qty: 90 0RF Eliquis 5 mg Tablet 5 mg PO BID Qty: 60 0RF losartan 100 mg Tablet 50 mg PO DAILY Qty: 0 0RF Discharge Orders: Discharge ED (Routine); Ordered 08/21/22 Ordered By: Krissy Chambers Referrals: [facility] [Primary Care Provider] - Discharge Diet: Usual diet Discharge Activity: Limit activity as instructed Patient Instructions: Arm Fracture in Adults (ED), Opioid Safety, Pain Management Activity Restrictions/Additional Instructions: Use pain medication as directed. Keep arm in sling. Ice and rest the extremity. Follow-up with Dr. Miguel first thing next week. Return to the ER for new or worsening symptoms. Keep laceration on hand clean and dry. Monitor closely for signs and symptoms of infection. Coding Level of Care Code ED Conveyor Tender for Whit Fwd Exam Detailed
--- NOTE | 2022-08-21 14:51 | XRR_ITS ---
PROCEDURE INFORMATION: Exam: XR Right Forearm Exam date and time: 08/21/2022 3:14 PM Age: 77 years old Clinical indication: Injury or trauma; Fall; Blunt trauma (contusions or hematomas); Arm, lower; Right TECHNIQUE: Imaging protocol: Radiologic exam of the Right forearm. Views: 2 views. COMPARISON: No relevant prior studies available. FINDINGS: Bones/joints: Normal. Soft tissues: Normal. XR/XR forearm RT 2V [id number] IMPRESSION: No acute findings.
--- NOTE | 2022-08-21 14:51 | XRR_ITS ---
PROCEDURE INFORMATION: Exam: XR Right Humerus Exam date and time: 08/21/2022 3:10 PM Age: 77 years old Clinical indication: Injury or trauma; Fall; Blunt trauma (contusions or hematomas); Arm, upper; Right TECHNIQUE: Imaging protocol: Radiologic exam of the Right humerus. Views: 2 or more views. COMPARISON: No relevant prior studies available. FINDINGS: Bones/joints: Comminuted displaced angulated fracture of the right humeral neck. Mild right acromioclavicular arthropathy. Soft tissues: Normal. XR/[place] [id number] IMPRESSION: Comminuted displaced angulated fracture of the right humeral neck.
--- NOTE | 2022-08-21 14:52 | XRR_ITS ---
PROCEDURE INFORMATION: Exam: XR Right Hand Exam date and time: 08/21/2022 3:23 PM Age: 77 years old Clinical indication: Injury or trauma; Fall; Blunt trauma (contusions or hematomas); Hand; Right TECHNIQUE: Imaging protocol: Radiologic exam of the Right hand. Views: 1 or 2 views. 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 Soft tissues: Normal. XR/XR hand RT 2V [id number] IMPRESSION: No acute findings.
[2022-08-21] MEDS: morphine 4 mg/mL SDV 1 mL IM (14:54)
--- NOTE | 2022-08-21 15:34 | XRR_ITS ---
PROCEDURE INFORMATION: Exam: XR Right Elbow Exam date and time: 08/21/2022 4:07 PM Age: 77 years old Clinical indication: Injury or trauma; Fall; Blunt trauma (contusions or hematomas); Elbow; Right TECHNIQUE: Imaging protocol: Radiologic exam of the Right elbow. Views: 1 or 2 views. COMPARISON: CR (UP EXM, ) 08/21/2022 3:23 PM FINDINGS: Bones/joints: There is ossification of the triceps tendon attachment consistent with enthesopathy. Soft tissues: Normal. XR/XR elbow RT 2V [id number] IMPRESSION: No acute findings.
[2022-08-21] MEDS: morphine 4 mg/mL SDV 1 mL 2 MG IVP ×2 (15:46→18:28)
--- NOTE | 2022-08-21 16:31 | CTR_ITS ---
PROCEDURE INFORMATION: Exam: CT Right Upper Extremity Without Contrast, Shoulder Exam date and time: 08/21/2022 4:49 PM Age: 77 years old Clinical indication: Injury or trauma; Fall; Blunt trauma (contusions or hematomas); Shoulder; Right; Additional info: Humerus fracture-fall TECHNIQUE: Imaging protocol: Computed tomography of the Right upper extremity without contrast. Exam focused on the shoulder. Radiation optimization: All CT scans at this facility use at least one of these dose optimization techniques: automated exposure control; mA and/or kV adjustment per patient size (includes targeted exams where dose is matched to clinical indication); or iterative reconstruction. COMPARISON: CR (UP EXM, ) 08/21/2022 3:10 PM RADIATION DOSE METRICS: Total DLP (mGy-cm): 357.84 FINDINGS: Bones/joints: Comminuted displaced fracture involving the right humeral neck and proximal humeral shaft. Contiguous fracture involving the lateral humeral head and portions of the greater tuberosity. No glenohumeral dislocation or AC separation. Mild right acromioclavicular arthropathy. Soft tissues: Normal. CT/CT shoulder RT wo con* [id number] IMPRESSION: 1. Comminuted displaced fracture involving the right humeral neck and proximal humeral shaft. 2. Contiguous fracture involving the lateral humeral head and portions of the greater tuberosity. 3. No glenohumeral dislocation or AC separation. 4. Mild right acromioclavicular arthropathy.
[2022-08-21] MEDS: oxyCODONE-APAP 5-325 mg Tablet 1 TAB PO (16:39)
--- NOTE | 2022-08-23 10:34 | DCPLANNER ---
Addendum entered by Berenice Haney 11/19/22 14:38: Patient had a follow up appointment scheduled with ortho - patient did attend appointment. Addendum entered by Berenice Haney 08/24/22 05:52: Patient has a follow up appointment scheduled for , August 26, 2022 at 9:[address] Miguel at ortho. Clinic will call patient with appointment information. Patient has [employer] insurance, telephonic nurse case manager sent patients information to [place] with [employer] for the authorization process to begin. Original Note: analytic manager had message to schedule a follow up appointment for patient with ortho. analytic manager sent patients information to the front office staff at ortho. Patients information will be printed and reviewed. Clinic will call patient with appointment information.
== END 2022-08-21 19:21 | disposition home or self-care (01) ==
PROVIDERS: Emergency Provider Nurse Practitioner Family
DX: S42.211A Unspecified displaced fracture of surgical neck of right humerus, initial encounter for closed fracture (principal); S61.411A Laceration without foreign body of right hand, initial encounter; I48.91 Unspecified atrial fibrillation; I10 Essential (primary) hypertension; W11.XXXA Fall on and from ladder, initial encounter
CPT/HCPCS: 29240; 73060; 73070; 73090; 73120; 73200; 96372; 96374; 96375; 99285; J2270

== ENCOUNTER → 2022-08-26 09:21 | Outpatient (BNVA) | payer OTHER, SELFPAY | PROVIDERS: Referring Provider Nurse Practitioner Family; Visit Provider Student in an Organized Health Care Education/Training Program | DX: S42.201A Unspecified fracture of upper end of right humerus, initial encounter for closed fracture (principal); W19.XXXA Unspecified fall, initial encounter | CPT/HCPCS: 73030; 99204 ==

== ENCOUNTER → 2022-09-02 06:55 | Outpatient (BNVA) | payer OTHER, SELFPAY | PROVIDERS: Visit Provider Student in an Organized Health Care Education/Training Program | DX: S42.201A Unspecified fracture of upper end of right humerus, initial encounter for closed fracture (principal); X58.XXXA Exposure to other specified factors, initial encounter; M79.89 Other specified soft tissue disorders | CPT/HCPCS: 73030; 99213 ==

== ENCOUNTER → 2022-09-09 14:48 | Outpatient (BNVA) | payer OTHER, SELFPAY | PROVIDERS: Visit Provider Student in an Organized Health Care Education/Training Program | DX: X58.XXXA Exposure to other specified factors, initial encounter (principal); M79.89 Other specified soft tissue disorders; S42.201A Unspecified fracture of upper end of right humerus, initial encounter for closed fracture | CPT/HCPCS: 73030; 99213 ==

== ENCOUNTER → 2022-09-23 13:49 | Outpatient (BNVA) | payer OTHER, SELFPAY | PROVIDERS: Visit Provider Student in an Organized Health Care Education/Training Program | DX: S42.201A Unspecified fracture of upper end of right humerus, initial encounter for closed fracture (principal); X58.XXXA Exposure to other specified factors, initial encounter | CPT/HCPCS: 73030; 99213 ==

== ENCOUNTER 2022-09-29 06:00 | Outpatient (RCR) | payer OTHER, SELFPAY | END 2022-10-20 23:59 | disposition home or self-care (01) | LOC: SPT 06:00 | PROVIDERS: Visit Provider Student in an Organized Health Care Education/Training Program | DX: S42.201D Unspecified fracture of upper end of right humerus, subsequent encounter for fracture with routine healing (principal); X58.XXXD Exposure to other specified factors, subsequent encounter | CPT/HCPCS: 97110; 97161 ==

== ENCOUNTER 2022-10-21 06:00 | Outpatient (RCR) | payer OTHER, SELFPAY | END 2022-11-20 23:59 | disposition home or self-care (01) | LOC: SPT 06:00 | PROVIDERS: Visit Provider Student in an Organized Health Care Education/Training Program | DX: S42.201D Unspecified fracture of upper end of right humerus, subsequent encounter for fracture with routine healing (principal); X58.XXXD Exposure to other specified factors, subsequent encounter | CPT/HCPCS: 97110 ==

== ENCOUNTER → 2022-10-25 10:06 | Outpatient (BNVA) | payer OTHER, SELFPAY | PROVIDERS: Visit Provider Student in an Organized Health Care Education/Training Program | DX: S42.201A Unspecified fracture of upper end of right humerus, initial encounter for closed fracture (principal); X58.XXXA Exposure to other specified factors, initial encounter | CPT/HCPCS: 73030; 99213 ==

== ENCOUNTER 2022-11-16 09:43 | Outpatient (CLI) | payer OTHER, SELFPAY ==
--- NOTE | 2022-11-16 10:15 | USCV_ITS ---
Constantine Walker Age: 77 Gender: M : 1945 Exam Date: 11/16/2022 09:56 Ordering Phys: Mahin Miguel DO Technologist: CT Exam Location: [facility]_ Indication: swelling PROCEDURES: Venous duplex imaging was performed in only the right upper extremity. In addition, the basilic vein, cephalic vein, radial vein, and ulnar vein. FINDINGS: normal UE venous doppler exam CONCLUSIONS No evidence of thrombus of the right upper extremity veins. Jaren Christopher MD (Electronically Signed) Final Date: 16 November 2022 10:40 S
== END 2022-11-16 09:44 | disposition home or self-care (01) ==
LOC: RAD 09:43
PROVIDERS: Visit Provider Student in an Organized Health Care Education/Training Program
DX: M79.89 Other specified soft tissue disorders
CPT/HCPCS: 93971

== ENCOUNTER 2022-11-21 06:00 | Outpatient (RCR) | payer OTHER, SELFPAY | END 2022-12-21 23:59 | disposition home or self-care (01) | LOC: SPT 06:00 | PROVIDERS: Visit Provider Student in an Organized Health Care Education/Training Program | DX: S42.201D Unspecified fracture of upper end of right humerus, subsequent encounter for fracture with routine healing (principal); X58.XXXD Exposure to other specified factors, subsequent encounter | CPT/HCPCS: 97110; 97140 ==

== ENCOUNTER → 2022-12-24 06:56 | Outpatient (BNVA) | payer OTHER, SELFPAY | PROVIDERS: Visit Provider Student in an Organized Health Care Education/Training Program | DX: S42.201A Unspecified fracture of upper end of right humerus, initial encounter for closed fracture (principal); X58.XXXA Exposure to other specified factors, initial encounter | CPT/HCPCS: 73060; 99213 ==

== ENCOUNTER 2023-06-06 01:02 | Emergency (ER) | payer OTHER, SELFPAY ==
[2023-06-06 01:07] VITALS: BP 170/104; PULSE 68; RESP 16; TEMP 36.5; O2SAT 94; BMI 24.7
--- NOTE | 2023-06-06 02:23 | W.ED.ALLEREA ---
HPI - Allergic Reaction General: Chief complaint: Allergic Reaction Stated complaint: Rash Time Seen by Provider: 06/06/23 02:19 History of Present Illness: HPI narrative: 78-year-old male patient comes in today for complaints of rash that he has been dealing with for over 2 weeks. Patient states that it started after he was working in the garden. Patient's eruption appears in his bilateral forearms hands and around his neck. Patient appears nontoxic. Patient complains of itching of the lesions. Review of Systems General: Reports: 10 or more systems reviewed and unremarkable except in HPI and below Card: Denies: chest pain Resp: Denies: dyspnea Skin/Breast: Reports: rash PFSH ED PFSH: Medical History Atrial fibrillation Fracture of proximal end of right humerus GERD (gastroesophageal reflux disease) Hypertension Surgical History H/O carotid endarterectomy H/O vasectomy Family History Denies family history of CAD (coronary artery disease) Chronic kidney disease (CKD) Cancer Social History Smoking and tobacco status: never smoked Alcohol intake: never Substance/Drug Use: never Household members: family Housing: House Physical Exam Const: COMMON NORMALS: alert HENMT: COMMON NORMALS: normocephalic HEAD & SCALP: normocephalic Neck/C-Spine: COMMON NORMALS: full ROM Resp: COMMON NORMALS: normal respiratory effort Extremity: COMMON NORMALS: full ROM Neuro: SENSORIUM/ORIENTATION: Yes alert Skin: RASHES: rashes noted (Patterned rash to the forearm and neck) Course Vital Signs: Vital signs: Vital Signs Temperature 97.7 F 06/06/23 01:07 Pulse Rate 68 06/06/23 01:07 Respiratory Rate 16 06/06/23 01:07 Blood Pressure 170/104 06/06/23 01:07 Pulse Oximetry 94 06/06/23 01:07 Oxygen Delivery Me thod Room Air 06/06/23 01:07 MDM - Allergic Reaction Medical Decision Making 78-year-old male patient comes in today for complaints of rash to the forearms and neck for over 2 weeks. Patient appears nontoxic. Patient reports itching. Respirations are even lungs are clear to auscultation. Patient appears in in no pain. Vital signs are normal except for elevated blood pressure. Differential diagnosis includes but not limited to photodermatitis, psoriasis, seborrheic dermatitis, contact dermatitis. Reviewed exam with patient recommending follow-up with dermatology for further evaluation. Recommend follow-up with primary care for the referral patient demanded that we set him up for referral with a agri business agent Adelia Riley. Case management was requested to assist with this follow-up appointment. [facility]. Discharge Plan Discharge Patient Disposition: Home Clinical Impression: Photodermatitis Condition: Stable Prescriptions: No Action (DME) CUFF AND COLLAR - RIGHT See Rx Instructions .Route .MEDSUPPLY Qty: 1 0RF Rx Instructions: As directed methocarbamol 500 mg tablet 500 mg PO TID PRN (Reason: muscle spasm) 7 Days Qty: 21 0RF oxycodone 5 mg capsule 5 mg PO Q6H PRN (Reason: pain) 7 Days Qty: 28 0RF Aldactone 25 mg Tablet 25 mg diltiazem HCl 30 mg Tablet 30 mg PO TID Qty: 90 0RF Eliquis 5 mg Tablet 5 mg PO BID Qty: 60 0RF losartan 100 mg Tablet 50 mg PO DAILY Qty: 0 0RF Discharge Orders: Discharge ED (Routine); Ordered 06/06/23 Ordered By: Trent Puente Discharge Diet: Usual diet Discharge Activity: Increase activity as tolerated Patient Instructions: Dermatitis (ED) Activity Restrictions/Additional Instructions: Follow-up with primary care. Case management will contact you regarding follow-up appointment with dermatology. Return to ED for new concerns. Coding Level of Care Code ED Travel Accommodations Rater for Whit Ruff
--- NOTE | 2023-06-06 09:04 | DCPLANNER ---
Addendum entered by Berenice Haney 06/30/23 12:17: Patient did attend appointment Addendum entered by Berenice Haney 06/08/23 14:31: Patient has a follow up appointment scheduled for May at 1:[address] Camarillo at dermatology. Original Note: asset manager had message to schedule a follow up appointment for patient with dermatology. asset manager sent patients information to the front office staff at dermatology. Patients information will be printed and reviewed. Clinic will call patient with appointment information.
--- NOTE | 2023-06-15 13:31 | DCPLANNER ---
guest house manager called patient due to no primary care physician - [facility].
== END 2023-06-06 02:37 | disposition home or self-care (01) ==
PROVIDERS: Emergency Provider Nurse Practitioner Family
DX: L56.8 Other specified acute skin changes due to ultraviolet radiation (principal); I10 Essential (primary) hypertension
CPT/HCPCS: 99282

== ENCOUNTER → 2023-06-09 12:39 | Outpatient (BNVA) | payer OTHER, SELFPAY | PROVIDERS: Referring Provider Nurse Practitioner Family; Visit Provider Dermatology | DX: L30.9 Dermatitis, unspecified (principal); L82.1 Other seborrheic keratosis; L81.4 Other melanin hyperpigmentation; L73.8 Other specified follicular disorders | CPT/HCPCS: 11102; 99203 ==

== ENCOUNTER 2023-08-04 15:05 | Emergency (ER) | payer OTHER, SELFPAY ==
[2023-08-04 15:10] VITALS: BP 164/72; PULSE 75; TEMP 36.6; O2SAT 95; BMI 24.5
--- NOTE | 2023-08-04 15:28 | ED_ITS ---
HPI - Allergic Reaction General: Chief complaint: Allergic Reaction Stated complaint: SOB,sting by eye Time Seen by Provider: 08/04/23 15:24 Source: patient Mode of arrival: ambulatory Limitations: no limitations History of Present Illness: HPI narrative: 78-year-old male states he was stung by a wasp to his right cheek roughly at 230. He states he is highly allergic to bee stings he tried to take an epinephrine pen but administered it wrong. Did take a Benadryl and 20 mg of prednisone. He states he had increased welling the right side of his face had some slight shortness of breath. He is in no distress here. Denies any worsening improving factors. Associated symptoms: Deny abdominal pain, nausea or vomiting Review of Systems Const: Denies: fever(s), chills or body aches Eyes: Reports: eye discomfort ENMT: Denies: throat pain or dental pain Card: Denies: chest pain Resp: Reports: dyspnea GI: Denies: abdominal pain, nausea, vomiting or diarrhea Musc: Denies: neck pain or back pain Skin/Breast: Reports: pruritus Neuro: Denies: headache(s) PFSH ED PFSH: Medical History Atrial fibrillation Fracture of proximal end of right humerus GERD (gastroesophageal reflux disease) Hypertension Surgical History H/O carotid endarterectomy H/O vasectomy Family History Denies family history of CAD (coronary artery disease) Chronic kidney disease (CKD) Cancer Social History Smoking and tobacco status: never smoked Alcohol intake: never Substance/Drug Use: never Household members: family Housing: House Physical Exam Const: COMMON NORMALS: no acute distress, patient oriented x3 and healthy appearing HENMT: COMMON NORMALS: normocephalic and atraumatic HEAD & SCALP: normocephalic and atraumatic THROAT: posterior oropharynx normal OTHER: Swelling erythema of the right side of the face Eye: COMMON NORMALS: Equal, round and reactive pupils present and EOMs intact bilaterally PUPIL: Yes Equal, round and reactive pupils present Neck/C-Spine: COMMON NORMALS: full ROM and supple Chest: COMMONS NORMALS: normal inspection of the chest Resp: COMMON NORMALS: normal respiratory effort, No retractions, No use of accessory muscles and clear to auscultation bilaterally AUSCULTATION: clear to auscultation bilaterally Cardio: COMMON NORMALS: regular rate, regular rhythm and No murmurs present (Cardio) RATE: regular rate RHYTHM: regular rhythm Extremity: COMMON NORMALS: normal to inspection and full ROM Neuro: COMMON NORMALS: patient oriented x3, moves all extremities and no focal motor deficits Psych: COMMON NORMALS: mental status grossly normal, Normal thought process present and cooperative THOUGHT PROCESS: Normal thought process present Skin: COMMON NORMALS: no wounds NARRATIVE SKIN EXAM: Being seen noted to right cheek with erythema and swelling Course Vital Signs: Vital signs: Vital Signs Temperature 97.8 F 08/04/23 15:10 Pulse Rate 79 08/04/23 17:04 Respiratory Rate 18 08/04/23 17:04 Blood Pressure 152/84 08/04/23 17:04 Pulse Oximetry 96 08/04/23 17:04 Oxygen Delivery Me thod Room Air 08/04/23 17:04 MDM - Allergic Reaction Medical Decision Making Patient presents here with an allergic reaction he did get a wasp thing to his face he is face is much improved swelling redness is went down he is feeling much improved and wanting to go home I feel he is stable for discharge he is to follow-up with PCP and return if worsening. No radiology studies performed this visit Discharge Plan Discharge Patient Disposition: Home Clinical Impression: Allergic reaction Condition: Stable Prescriptions: No Action (DME) CUFF AND COLLAR - RIGHT See Rx Instructions .Route .MEDSUPPLY Qty: 1 0RF Rx Instructions: As directed Eliquis 5 mg Tablet 5 mg PO BID Qty: 60 0RF losartan 100 mg Tablet 50 mg PO DAILY Qty: 0 0RF spironolactone 25 mg Tablet 25 mg PO DAILY omeprazole 20 mg Capsule,Delayed Release(Dr/Ec) 20 mg PO DAILY vitamin E 268 mg (400 unit) Capsule 268 mg PO DAILY Vitamin D3 10 mcg (400 unit) Capsule 10 mcg PO DAILY Discharge Orders: Discharge ED (Routine); Ordered 08/04/23 Ordered By: Maycol Soriano Discharge Diet: Advance as tolerated Discharge Activity: Resume usual activity Patient Instructions: General Allergic Reaction (ED) Coding Level of Care Code ED Email Marketing Manager for Whit Ruff
[2023-08-04] MEDS: famotidine 20 mg/2 mL INJ 40 MG IVP (15:54)
[2023-08-04] MEDS: methylPREDNISolone sod succ 60 MG in water for injection-sterile 0.96 ML 11.52 MG IVP (15:54)
[2023-08-04] MEDS: EPINEPHrine 1 mg/mL INJ 0.3 MG IM (15:55)
[2023-08-04 16:24] VITALS: BP 142/86; PULSE 76; RESP 18; O2SAT 96
[2023-08-04 17:04] VITALS: BP 152/84; PULSE 79; RESP 18; O2SAT 96
== END 2023-08-04 17:38 | disposition home or self-care (01) ==
PROVIDERS: Emergency Provider Emergency Medicine
DX: T63.461A Toxic effect of venom of wasps, accidental (unintentional), initial encounter (principal); Z79.01 Long term (current) use of anticoagulants; I10 Essential (primary) hypertension
CPT/HCPCS: 96372; 96374; 96375; 99284; J0171; J2930; J3490

== ENCOUNTER 2023-08-30 01:16 | Emergency (ER) | payer OTHER, SELFPAY ==
[2023-08-30 01:19] VITALS: BP 182/102; PULSE 60; RESP 18; TEMP 36.7; O2SAT 95; BMI 24.5
--- NOTE | 2023-08-30 01:34 | W.ED.GENADLT ---
HPI - General Adult General: Chief complaint: General Medical Stated complaint: rash on face Time Seen by Provider: 08/30/23 01:24 History of Present Illness: Patient presents to the ER with complaints of rash on his face. Patient was stung by wasp approximately 2 weeks ago and still has swelling and burning near his right eye and his right cheek. Patient was seen in this ER and treated with medication. Patient also states that his gave him a yeast infection in the genital area has been trying to treat with cream and has not been having any luck. Review of Systems General: Reports: 10 or more systems reviewed and unremarkable except in HPI and below PFSH ED PFSH: Medical History Atrial fibrillation Fracture of proximal end of right humerus GERD (gastroesophageal reflux disease) Hypertension Surgical History H/O carotid endarterectomy H/O vasectomy Family History Denies family history of CAD (coronary artery disease) Chronic kidney disease (CKD) Cancer Social History Smoking and tobacco status: never smoked Alcohol intake: never Substance/Drug Use: never Household members: family Housing: House Physical Exam Const: COMMON NORMALS: no acute distress, average body habitus, patient oriented x3, no limitations, healthy appearing, alert and well nourished HENMT: COMMON NORMALS: normocephalic, atraumatic, hearing grossly normal bilaterally, external ears normal, Normal external nose present, moist oral mucous membranes and oropharynx normal HEAD & SCALP: normocephalic and atraumatic NOSE: Normal external nose present EXTERNAL EAR: Yes external ears normal Eye: COMMON NORMALS: Equal, round and reactive pupils present, EOMs intact bilaterally, conjunctivae normal and no scleral icterus CONJUNCTIVA: Yes conjunctivae normal PUPIL: Yes Equal, round and reactive pupils present Neck/C-Spine: COMMON NORMALS: no JVD Chest: COMMONS NORMALS: normal inspection of the chest and normal palpation of entire chest wall Resp: COMMON NORMALS: normal respiratory effort, No retractions, No use of accessory muscles and clear to auscultation bilaterally AUSCULTATION: clear to auscultation bilaterally Cardio: COMMON NORMALS: no JVD, regular rate, regular rhythm, S1 normal heart sound present, S2 normal heart sound present, No gallops present (Cardio), No clicks present (Cardio), No murmurs present (Cardio) and No rub (Cardio) RATE: regular rate RHYTHM: regular rhythm HEART SOUNDS: S1 normal heart sound present and S2 normal heart sound present GI: COMMON NORMALS: Normal to inspection, nondistended, normoactive bowel sounds present, Soft to palpation, non-tender, No hepatosplenomegaly present and no masses PALPATION: Yes Soft to palpation and Yes No hepatosplenomegaly present Neuro: COMMON NORMALS: patient oriented x3 SENSORIUM/ORIENTATION: Yes alert Course Vital Signs: Vital signs: Vital Signs Temperature 98.0 F 08/30/23 01:19 Pulse Rate 60 08/30/23 01:19 Respiratory Rate 18 08/30/23 01:19 Blood Pressure 182/102 08/30/23 01:19 Pulse Oximetry 95 08/30/23 01:19 Oxygen Delivery Me thod Room Air 08/30/23 01:19 MDM - General Adult Medical Decision Making Patient has a redness area on his right cheek where he was stung by wasp approximately a week ago. Patient was seen and treated in this ER. Patient also states he is got a genital yeast infection. Patient be placed on triamcinolone cream for his cheek and Diflucan tablets for his yeast infection. Patient is to follow-up with his PCP within the next week. Differential Diagnosis Rash, yeast infection Medical Records I reviewed the patient's medical records. Lab Data I reviewed the patient's lab results. No radiology studies performed this visit Discharge Plan Discharge Patient Disposition: Home Clinical Impression: Rash, Infection due to yeast Condition: Stable Prescriptions: New triamcinolone acetonide 0.1 % cream 1 applic topical BID PRN (Reason: rash) Qty: 30 0RF fluconazole [Diflucan] 100 mg tablet 100 mg PO DAILY 7 Days Qty: 7 0RF No Action (DME) CUFF AND COLLAR - RIGHT See Rx Instructions .Route .MEDSUPPLY Qty: 1 0RF Rx Instructions: As directed Eliquis 5 mg Tablet 5 mg PO BID Qty: 60 0RF losartan 100 mg Tablet 50 mg PO DAILY Qty: 0 0RF spironolactone 25 mg Tablet 25 mg PO DAILY omeprazole 20 mg Capsule,Delayed Release(Dr/Ec) 20 mg PO DAILY vitamin E 268 mg (400 unit) Capsule 268 mg PO DAILY Vitamin D3 10 mcg (400 unit) Capsule 10 mcg PO DAILY Discharge Orders: Discharge ED (Routine); Ordered 08/30/23 Ordered By: Fuentes Garcia Patient Instructions: Acute Rash (ED), Yeast Infection Activity Restrictions/Additional Instructions: Please take the medicine as directed. Please follow-up with your family practice physician within the next week for further evaluation and treatment. Coding Level of Care Code ED Collection Systems Modeler for Whit Ruff
[2023-08-30 01:45] VITALS: BP 167/97; PULSE 81; RESP 18; O2SAT 97
== END 2023-08-30 01:46 | disposition home or self-care (01) ==
PROVIDERS: Emergency Provider Emergency Medicine
DX: R21 Rash and other nonspecific skin eruption (principal); B37.49 Other urogenital candidiasis; Z79.01 Long term (current) use of anticoagulants; I10 Essential (primary) hypertension
CPT/HCPCS: 99283

== ENCOUNTER → 2023-09-01 06:55 | Outpatient (BNVA) | payer OTHER, SELFPAY | PROVIDERS: Visit Provider Student in an Organized Health Care Education/Training Program | DX: S42.201D Unspecified fracture of upper end of right humerus, subsequent encounter for fracture with routine healing; X58.XXXD Exposure to other specified factors, subsequent encounter | CPT/HCPCS: 73060; 99213 ==

== ENCOUNTER 2023-09-18 03:16 | Emergency (ER) | payer OTHER, SELFPAY ==
[2023-09-18 03:27] VITALS: BP 148/89; PULSE 58; RESP 20; TEMP 36.6; O2SAT 97; BMI 24.3
--- NOTE | 2023-09-18 03:58 | W.ED.SKABFB ---
HPI - Skin/Abscess/Foreign Bdy General: Chief complaint: Skin/Abscess/Foreign Body Stated complaint: yeast infection Time Seen by Provider: 09/18/23 03:31 History of Present Illness: 78-year-old male he says he has had problems with genital yeast infection for a couple of weeks now. He also notes that it may have spread to my face and lips . He said these areas burn and itch. No fever. No vomiting. He had been seen for this prior, and placed on Diflucan without improvement. He is also been using miconazole cream to the genital genital area with some minimal improvement. Associated symptoms: Deny fever(s) or vomiting Review of Systems Const: Denies: fever(s) ENMT: Denies: throat pain Card: Denies: chest pain Resp: Denies: dyspnea GI: Denies: vomiting Skin/Breast: Reports: rash, erythema and skin pain [facility] ED PFSH: Medical History Atrial fibrillation Fracture of proximal end of right humerus GERD (gastroesophageal reflux disease) Hypertension Surgical History H/O carotid endarterectomy H/O vasectomy Family History Denies family history of CAD (coronary artery disease) Chronic kidney disease (CKD) Cancer Social History Smoking and tobacco/nicotine status: never used tobacco/nicotine Alcohol intake: never Substance/Drug Use: never Household members: family Housing: House Physical Exam Const: COMMON NORMALS: no acute distress GENERAL APPEARANCE: cooperative; not ill appearing and not frail appearing HENMT: COMMON NORMALS: normocephalic and atraumatic HEAD & SCALP: normocephalic and atraumatic FACE & SINUS: erythema (Right periorbital. Minimal.) Eye: COMMON NORMALS: Equal, round and reactive pupils present and conjunctivae normal CONJUNCTIVA: Yes conjunctivae normal PUPIL: Yes Equal, round and reactive pupils present Neck/C-Spine: GENERAL: Yes trachea midline Chest: CHEST: Yes Symmetrical chest wall rise Resp: COMMON NORMALS: normal respiratory effort and No retractions Cardio: COMMON NORMALS: regular rate and regular rhythm RATE: regular rate RHYTHM: regular rhythm : PENIS: circumcised, no ecchymosis, erythematous, no masses, no papules, no pustules, no vesicles, no ulcerations and other (Glossy erythematous skin with rolled border at the base of the glans.) Neuro: ADELIA COMA SCALE: document GCS findings Adelia coma scale eye opening: Spontaneous Adelia coma scale verbal response: Orientated Adelia coma scale motor response: Obey commands Adelia coma scale total score: 15 Psych: COMMON NORMALS: mental status grossly normal Skin: NARRATIVE SKIN EXAM: See above Course Vital Signs: Vital signs: Vital Signs Temperature 98 F 09/18/23 03:27 Pulse Rate 58 L 09/18/23 03:27 Respiratory Rate 20 H 09/18/23 03:27 Blood Pressure 148/89 09/18/23 03:27 Pulse Oximetry 97 09/18/23 03:27 MDM - Skin/Abscess/Foreign Bdy Medicial Decision Making Genital candidiasis in a male that is circumcised with failure of treatment of fluconazole. He will be placed on nystatin both orally and topically. Close outpatient follow-up. No radiology studies performed this visit Discharge Plan Discharge Patient Disposition: Home Clinical Impression: Candidiasis of genitalia Condition: Stable Prescriptions: New nystatin 500,000 unit tablet 500,000 unit PO TID Qty: 30 0RF nystatin 100,000 unit/gram powder 1 applic topical BID Qty: 30 0RF No Action Eliquis 5 mg Tablet 5 mg PO BID Qty: 60 0RF losartan 100 mg Tablet 50 mg PO DAILY Qty: 0 0RF triamcinolone acetonide 0.1 % cream 1 applic topical BID PRN (Reason: rash) Qty: 30 0RF spironolactone 25 mg Tablet 25 mg PO DAILY omeprazole 20 mg Capsule,Delayed Release(Dr/Ec) 20 mg PO DAILY vitamin E 268 mg (400 unit) Capsule 268 mg PO DAILY Vitamin D3 10 mcg (400 unit) Capsule 10 mcg PO DAILY Discharge Orders: Discharge ED (Routine); Ordered 09/18/23 Ordered By: Terry Barker Patient Instructions: Yeast Infection (ED), Opioid Safety, Pain Management Activity Restrictions/Additional Instructions: Oral medication as directed. Use the powder on the genital area topically instead of the miconazole you have been using. Monitor for fever. Follow-up with your doctor next week. Coding Level of Care Code ED Health Teacher for Whit Ruff
[2023-09-18 04:02] VITALS: BP 137/82; PULSE 59; RESP 16; O2SAT 97
[2023-09-18] MEDS: nystatin 100,000 unit/mL UDC 5 mL 500000 UNIT PO (04:07)
[2023-09-18 04:11] VITALS: BP 137/82; PULSE 59; RESP 16; O2SAT 97
== END 2023-09-18 04:13 | disposition home or self-care (01) ==
PROVIDERS: Emergency Provider Emergency Medicine
DX: B37.49 Other urogenital candidiasis (principal); Z79.01 Long term (current) use of anticoagulants; I10 Essential (primary) hypertension
CPT/HCPCS: 99283

== ENCOUNTER → 2024-02-07 07:49 | Outpatient (BNVA) | payer OTHER, SELFPAY | PROVIDERS: Visit Provider Nurse Practitioner Family | DX: L82.1 Other seborrheic keratosis (principal); L21.8 Other seborrheic dermatitis; L57.0 Actinic keratosis | CPT/HCPCS: 17000; 99213 ==

== ENCOUNTER → 2024-02-22 13:36 | Outpatient (BNVA) | payer OTHER, SELFPAY | PROVIDERS: Visit Provider Dermatology | DX: L71.8 Other rosacea (principal) | CPT/HCPCS: 99214 ==

== ENCOUNTER → 2024-03-14 12:45 | Outpatient (BNVA) | payer OTHER, SELFPAY | PROVIDERS: Visit Provider Dermatology | DX: L71.8 Other rosacea (principal) | CPT/HCPCS: 99213 ==

== ENCOUNTER 2024-08-02 17:46 | Emergency (ER) | payer OTHER, SELFPAY ==
[2024-08-02 17:49] VITALS: BP 172/89; PULSE 62; RESP 16; TEMP 36.7; O2SAT 97
[2024-08-02 18:27] VITALS: BP 163/90; PULSE 62; RESP 18; O2SAT 94
--- NOTE | 2024-08-02 18:27 | W.ED.ALLEREA ---
HPI - Allergic Reaction General: Chief complaint: Allergic Reaction Stated complaint: stung, sob, swelling in mouth and face Time Seen by Provider: 08/02/24 17:57 History of Present Illness: HPI narrative: 79-year-old man with history of atrial fibrillation, hypertension and severe environmental and insect sting allergies who presents emergency room with an allergic reaction. He says he was out brush hogging when he rubbed his eyes and then developed right sided erythema and swelling around his eye and his face. Congestion in his nose and he feels like he is swelling in his mouth. No chest pain. No shortness of breath. No increased work of breathing on presentation. No tachycardia. Blood pressure slightly elevated. Related Data Home Medications Medication Instructions Recorded Confirmed cholecalciferol (vitamin D3) 10 10 mcg PO DAILY 08/04/23 09/01/23 mcg (400 unit) capsule (Vitamin D3) omeprazole 20 mg capsule,delayed 20 mg PO DAILY 08/04/23 09/01/23 release spironolactone 25 mg tablet 25 mg PO DAILY 08/04/23 09/01/23 vitamin E 268 mg (400 unit) capsule 268 mg PO DAILY 08/04/23 09/01/23 Previous Rx's Medication Instructions Recorded apixaban 5 mg tablet (Eliquis) 5 mg PO BID #60 tabs 12/20/19 losartan 100 mg tablet 50 mg (1/2 x 100 mg) PO DAILY #0 12/20/19 tabs triamcinolone acetonide 0.1 % 1 applic topical BID PRN rash #30 08/30/23 topical cream grams nystatin 100,000 unit/gram topical 1 applic topical BID #30 grams 09/18/23 powder nystatin 500,000 unit tablet 500,000 unit PO TID #30 tabs 09/18/23 hydroxyzine HCl 25 mg tablet 25 mg PO TID PRN anxiety #30 tabs 08/02/24 prednisone 20 mg tablet 60 mg (3 x 20 mg) PO DAILY 5 days 08/02/24 #15 tabs Allergies Allergy/AdvReac Type Severity Reaction Status Date / Time adhesive Allergy ALGY-Rash Verified 08/02/24 17:53 amiodarone Allergy Unknown Verified 08/02/24 17:53 bee venom protein (honey bee) Allergy ALGY-Anaphy Verified 08/02/24 17:53 laxis latex Allergy ALGY-Rash Verified 08/02/24 17:53 Penicillins Allergy Unknown Verified 08/02/24 17:53 Sulfa (Sulfonamide Allergy ADR/ALGY-Fl Verified 08/02/24 17:53 Antibiotics) ushing Review of Systems Narrative: Constitutional symptoms: Negative except as documented in HPI. Skin symptoms: Negative except as documented in HPI. Eye symptoms: Negative except as documented in HPI. ENMT symptoms: Negative except as documented in HPI. Respiratory symptoms: Negative except as documented in HPI. Cardiovascular symptoms: Negative except as documented in HPI. Gastrointestinal symptoms: Negative except as documented in HPI. Genitourinary symptoms: Negative except as documented in HPI. Musculoskeletal symptoms: Negative except as documented in HPI. Neurologic symptoms: Negative except as documented in HPI. Psychiatric symptoms: Negative except as documented in HPI. Endocrine symptoms: Negative except as documented in HPI. PFSH ED PFSH: Medical History Atrial fibrillation Fracture of proximal end of right humerus GERD (gastroesophageal reflux disease) Hypertension Surgical History H/O carotid endarterectomy H/O vasectomy Family History Denies family history of CAD (coronary artery disease) Chronic kidney disease (CKD) Cancer Social History Smoking and tobacco/nicotine status: never used tobacco/nicotine Alcohol intake: never Substance/Drug Use: never Household members: family Housing: House Physical Exam Narrative: EXAM NARRATIVE: General: Alert, no acute distress. Skin: Warm, dry. Some erythema around the right eye and the right cheek. Mild edema of the cheek as well. Head: Normocephalic, atraumatic. Neck: Supple, trachea midline. Eye: Extraocular movements are intact. Ears, nose, mouth and throat: mucosa moist. Cardiovascular: Regular, Normal peripheral perfusion. Respiratory: Lungs are clear to auscultation, respirations are non-labored, breath sounds are equal, Symmetrical chest wall expansion. Gastrointestinal: Soft, Nontender, Non distended Musculoskeletal: Normal ROM, no deformity. Neurological: Alert and oriented, No focal neurological deficit observed. Psychiatric: Cooperative, appropriate mood & affect. Course Vital Signs: Vital signs: Vital Signs Temperature 98.0 F 08/02/24 17:49 Pulse Rate 57 L 08/02/24 18:42 Respiratory Rate 18 08/02/24 18:42 Blood Pressure 143/83 08/02/24 18:42 Pulse Oximetry 96 08/02/24 18:42 Oxygen Delivery Me thod Room Air 08/02/24 18:42 MDM - Allergic Reaction Medical Decision Making Medical decision making: Differential diagnosis including but not limited to and based on the above HPI, review of systems and physical exam: In a patient with complaints of allergic reaction have concern for anaphylaxis, medication reactions and viral reactions. Orders placed to evaluate differential diagnosis based on the above differential, HPI and physical exam Reexamination: Patient remained stable. No increased work of breathing. No altered mental status. No focal motor deficits. Patient has had some improvement in his swelling. No shortness of breath. Vital signs remained fairly normal. Blood pressure is improved. Assessment and plan: Allergic reaction ? IV Benadryl, IV Solu-Medrol and IV Pepcid in the emergency room. Also oral Tylenol. - Discharged home - Discussed plan with patient. Answered any questions. - Evaluation and treatment of this problem were appropriate in the emergency setting. No radiology studies performed this visit Discharge Plan Discharge Patient Disposition: Home Clinical Impression: Allergic reaction Condition: Stable Prescriptions: New prednisone 20 mg tablet 60 mg PO DAILY 5 Days Qty: 15 0RF hydroxyzine HCl 25 mg tablet 25 mg PO TID PRN (Reason: anxiety) Qty: 30 0RF No Action Eliquis 5 mg Tablet 5 mg PO BID Qty: 60 0RF losartan 100 mg Tablet 50 mg PO DAILY Qty: 0 0RF triamcinolone acetonide 0.1 % cream 1 applic topical BID PRN (Reason: rash) Qty: 30 0RF nystatin 500,000 unit tablet 500,000 unit PO TID Qty: 30 0RF nystatin 100,000 unit/gram powder 1 applic topical BID Qty: 30 0RF spironolactone 25 mg Tablet 25 mg PO DAILY omeprazole 20 mg Capsule,Delayed Release(Dr/Ec) 20 mg PO DAILY vitamin E 268 mg (400 unit) Capsule 268 mg PO DAILY Vitamin D3 10 mcg (400 unit) Capsule 10 mcg PO DAILY Discharge Orders: Discharge ED (Routine); Ordered 08/02/24 Ordered By: Dorcas Brewer Discharge Diet: Usual diet Discharge Activity: Increase activity as tolerated Patient Instructions: Opioid Safety, Pain Management Activity Restrictions/Additional Instructions: Thank you for choosing [facility] for your healthcare needs today. Please realize this is an emergency room and that we are providing you with a medical screening exam and this may not be complete and all inclusive of all the testing and or work up that you may need to determine your ailment or severity of your illness. You have been screened and evaluated and felt safe for discharge. Health conditions do change or evolve sometimes and as such it is important that you follow up with your Primary Doctor to be re checked, 3-5 days is a general good time frame for follow up. 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
[2024-08-02] MEDS: methylPREDNISolone sod succ 125 mg/2 mL INJ IVP (18:29)
[2024-08-02] MEDS: famotidine 20 mg/2 mL INJ 40 MG IVP (18:33)
[2024-08-02 18:42] VITALS: BP 143/83; PULSE 57; RESP 18; O2SAT 96
[2024-08-02] MEDS: acetaminophen 500 mg Tablet 1000 MG PO (19:36)
[2024-08-02] MEDS: diphenhydrAMINE 50 mg/mL SDV 1mL 25 MG IVP (19:37)
[2024-08-02 19:52] VITALS: BP 157/85; PULSE 68; O2SAT 97
== END 2024-08-02 19:53 | disposition home or self-care (01) ==
PROVIDERS: Emergency Provider Emergency Medicine
DX: T78.40XA Allergy, unspecified, initial encounter (principal); X58.XXXA Exposure to other specified factors, initial encounter; I10 Essential (primary) hypertension; Z79.01 Long term (current) use of anticoagulants
CPT/HCPCS: 96374; 96375; 99284; J1200; J2919; J3490

== ENCOUNTER → 2025-11-12 08:27 | Outpatient (BNVA) | payer OTHER, SELFPAY | PROVIDERS: Visit Provider Nurse Practitioner Family | DX: L72.0 Epidermal cyst (principal); L71.8 Other rosacea; L57.0 Actinic keratosis | CPT/HCPCS: 17000; 99213 ==